=== PATIENT | female | born 1950 | race Asian ===

== ENCOUNTER 2023-05-24 08:39 | Emergency (ER) | payer OTHER ==
[~2023-05-24] VITALS: Ht 162.6 cm; Wt 82.0 kg
[2023-05-24 08:39] VITALS: PULSE 0; RESP 4; O2SAT 78
[2023-05-24 08:50] VITALS: BP 0/0; RESP 0; O2SAT 0
[2023-05-24] MEDS ORDERED: dilTIAZem 25 MG/5 ML VIAL IV ONE ×2 (08:59→09:00)
[2023-05-24] MEDS ORDERED: PROPOFOL 100 ML IV SCH (09:00)
[2023-05-24] MEDS ORDERED: SODIUM CHLORIDE 0.9% 1,000 ML IV ONE ×2 (09:15)
[2023-05-24] MEDS ORDERED: SODIUM BICARBONATE 8.4% INJ 50ML SYRINGE ONE (09:26)
[2023-05-24] MEDS ORDERED: EPINEPHrine HCL 1 MG/10 ML SYRG ONE ×2 (09:26→09:38)
[2023-05-24 09:56] VITALS: PULSE 160
== END 2023-05-24 09:48 | disposition home or self-care (01) ==
LOC: EDBD 08:39 → ER 08:39
DX: I46.9 Cardiac arrest, cause unspecified (principal); F41.9 Anxiety disorder, unspecified; F32.9 Major depressive disorder, single episode, unspecified; E78.5 Hyperlipidemia, unspecified; Z98.890 Other specified postprocedural states
CPT/HCPCS: 31500; 92950; 93005; 96374; 99291; J0171